=== PATIENT | female | born 1995 | race American Indian/Alaskan Native ===

== ENCOUNTER 2017-03-09 09:43 | Emergency (ER) | payer SELFPAY ==
[2017-03-09 10:00] VITALS: BP 120/81
[2017-03-09 11:47] LABS: Bilirubin,Urine NEG (Negative); Blood,Urine NEG (Negative); Ketones,Urine TR mg/dL (Negative); Leukocyte Esterase,Urine TR (Negative); Mucus,Urine 3+ /HPF; Nitrite,Urine NEG (Negative); Urobilinogen,Urine < 2.0 mg/dL (<2.0)
--- NOTE | 2017-03-09 14:42 | Emergency Department Report ---
Entered by BHUPINDER WOOTEN, acting as scribe for MILI TYSON PA. ED Female HPI - General Chief complaint: Urogenital-Female Stated complaint: VAGINAL DISCHARGE Source: patient Mode of arrival: Ambulatory Limitations: No Limitations - History of Present Illness Initial comments: 21 year old female with no significant PMHx presents to the ED c/o vaginal discharge and internal vaginal itching that began 1 week ago. Patient rates vaginal itching a 7/10 in severity. Associated symptoms include odor with discharge and fever, but she denies dysuria, urgency, frequency, nausea, vomiting, abdominal pain, back pain, and chills. She reports being sexually active with and without protection. Notes that she believe her symptoms are due to an allergic reaction to a condom. LMP 03/03/2017. Complaint: vaginal discharge, other (vaginal itching) Onset/Timin -: week(s) Location: suprapubic Radiation: non-radiating Severity: moderate Severity scale (0 -10): 7 Consistency: constant Improves with: none Worsens with: none Are you Now?: No Last Menstrual Period: 03/03/17 EDC: 12/08/17 Associated Symptoms: vaginal discharge (with odor), fever/chills (denies chills) , other (internal vaginal itching). denies: vaginal bleeding, abdominal pain, nausea/vomiting, headaches, dysuria, hematuria, rash, shortness of breath, weakness - Related Data Sexually active: Yes (with and without protection) Allergies Allergy/AdvReac Type Severity Reaction Status Date / Time amoxicillin trihydrate Allergy Swelling Verified 03/09/17 09:55 [From Augmentin] potassium clavulanate Allergy Swelling Verified 03/09/17 09:55 [From Augmentin] ED Review of Systems Comment: All other systems reviewed and negative Constitutional: fever. denies: chills Respiratory: denies: orthopnea, shortness of breath, SOB with exertion, SOB at rest, stridor Cardiovascular: denies: dyspnea on exertion, orthopnea Gastrointestinal: denies: abdominal pain, nausea, vomiting Genitourinary: discharge (with odor), other (internal vaginal itching). denies : urgency, dysuria, frequency, hematuria Musculoskeletal: denies: back pain Skin: denies: rash Neurological: denies: headache ED Past Medical Hx - Past Medical History Previous Medical History?: No - Surgical History Additional Surgical History: Tonsil, adnoids - Social History Smoking Status: Current Every Day Smoker Substance Use Type: None ED Physical Exam - General Limitations: No Limitations General appearance: alert, in no apparent distress - Head Head exam: Present: atraumatic, normocephalic - Eye Eye exam: Present: normal appearance, EOMI Pupils: Present: normal accommodation - ENT ENT exam: Present: normal exam, mucous membranes moist - Neck Neck exam: Present: normal inspection, full ROM - Respiratory Respiratory exam: Present: normal lung sounds bilaterally. Absent: respiratory distress - Cardiovascular Cardiovascular Exam: Present: regular rate, normal rhythm. Absent: systolic murmur, diastolic murmur, rubs, gallop - GI/Abdominal GI/Abdominal exam: Present: soft, normal bowel sounds. Absent: distended, tenderness, guarding, rebound, rigid - External exam: Present: normal external exam (female habilitation assistant present during the exam). Absent: erythema, swelling, lesions, ecchymosis, bleeding, other ( vaginal discharge) Speculum exam: Present: normal speculum exam (female habilitation assistant present during the exam), vaginal discharge (moderate amounts), other (vaginal odor). Absent: erythema, cervical discharge, vaginal bleeding Bi-manual exam: Present: normal bi-manual exam (female habilitation assistant present during the exam). Absent: cervical motion tendernes, uterine enlargement, uterine tenderness - Expanded Exam Expanded Female exam: Absent: vaginal laceration, tissue present in vagina, herpetic lesions, vulvar erythema, vulvar tenderness External exam: Present: normal Amniotic fluid: Present: none Speculum exam: Present: cervical OS closed, vaginal discharge (moderate amounts) . Absent: vaginal bleeding - Extremities Exam Extremities exam: Present: normal inspection, full ROM - Back Exam Back exam: Present: normal inspection, full ROM. Absent: CVA tenderness (R), CVA tenderness (L) - Neurological Exam Neurological exam: Present: alert, oriented X3 - Psychiatric Psychiatric exam: Present: normal affect, normal mood - Skin Skin exam: Present: warm, dry, intact. Absent: rash ED Course Vital Signs 03/09/17 09:55 Temperature 97.9 F Pulse Rate 90 Respiratory 16 Rate Blood Pressure 120/81 O2 Sat by Pulse 100 Oximetry ED Disposition Clinical Impression: Vaginitis Qualifiers: Chronicity: acute Qualified Code(s): N76.0 - Acute vaginitis Disposition: DISCHARGED TO HOME OR SELFCARE Is pt being admited?: No Does the pt Need Aspirin: No Condition: Stable Instructions: Vaginitis (ED), Safe Sex (ED) Additional Instructions: Your gonorrhea and chlamydia screening will results in the next 2-3 days. You can call back in 3 days to check the result or be treated if positive Use Vagisil [id number]. use nonsensitive soaps Referrals: PRIMARY MD HUSSEIN [Primary Care Provider] - 3-5 Days ANGY CAMPOS MD [Referring] - 3-5 Days [facility] [Outside] - 3-5 Days [facility] [Outside] - 3-5 Days Forms: Work/School Release Form(ED) Time of Disposition: 12:38 This documentation as recorded by the JE ocasio JASMINE,accurately reflects the service I personally performed and the decisions made by ,MILI TYSON PA.
== END 2017-03-09 12:54 | disposition home or self-care (01) ==
LOC: ED 09:43
DX: N76.0 Acute vaginitis (principal); F17.200 Nicotine dependence, unspecified, uncomplicated
CPT/HCPCS: 81001; 81025; 87210; 87591; 99284